=== PATIENT | male | born 2000 | race Caucasian/White ===

== ENCOUNTER 2020-05-27 23:42 | Emergency (ER) | payer OTHER ==
[2020-05-27 23:56] VITALS: BP 143/84; PULSE 93; RESP 18; TEMP 98.9
[2020-05-28] MEDS ORDERED: ACETAMINOPHEN TAB 325 MG TAB PO STA (00:15)
[2020-05-28] MEDS ORDERED: LIDOCAINE 1% INJ 10MG/ML (20 ML MDV) SQ ONE (00:15)
[2020-05-28] MEDS ORDERED: DIPH,PERTUS(ACELL)TETVAC-LF 0.5 ML VIAL IM ONE (00:15)
--- NOTE | 2020-05-28 00:15 | ED ---
Wound/Laceration HPI - General Chief Complaint: Wound/Laceration Stated Complaint: left hand laceration Time Seen by Provider: 05/27/20 23:59 Source: patient, family Mode of arrival: ambulatory Limitations: no limitations - History of Present Illness Initial Comments: 19-year-old male presenting today for chief complaint of left hand laceration. Patient states he was using a pocketknife when he actually slipped cutting his left hand on the palm. Patient doesn't limitations in range of motion of the digit. Patient states is near the center of the hand. Patient states bleeding is controlled. Grandfather who is bedside states that patient's childhood vaccinations are up-to-date. He states he has not had an updated tetanus though within the last 10 years. Patient is no additional complaints he appears well arrival - Related Data Allergies Allergy/AdvReac Type Severity Reaction Status Date / Time No Known Allergies Allergy Verified 05/27/20 23:56 Review of Systems ROS Statement: Those systems with pertinent positive or pertinent negative responses have been documented in the HPI. ROS Other: All systems not noted in ROS Statement are negative. Past Medical History Past Medical History: No Reported History History of Any Multi-Drug Resistant Organisms: None Reported Past Surgical History: No Surgical Hx Reported Past Psychological History: No Psychological Hx Reported Smoking Status: Never smoker Past Alcohol Use History: None Reported Past Drug Use History: None Reported General Exam - General Exam Comments Initial Comments: General: The patient is awake and alert, in no distress, and does not appear acutely ill. Eye: Pupils are equal, round and reactive to light, extra-ocular movements are intact. No nystagmus. There is normal conjunctiva bilaterally. No signs of icterus. Musculoskeletal: Normal ROM, no tenderness. Strength 5/5. Sensation intact. Pulses equal bilaterally 2+. Neurological: A&O x 3. CN II-XII intact grossly, There are no obvious motor or sensory deficits. Coordination appears grossly intact. Speech is normal. Skin: Skin is warm and dry and no rashes or lesions are noted. 1.5cm laceration of the left hand palm distal to thenar eminence mid hand. Psychiatric: Cooperative, appropriate mood & affect, normal judgment. Limitations: no limitations Course Vital Signs 05/27/20 23:54 Temperature 98.9 F Pulse Rate 93 Respiratory 18 Rate Blood Pressure 143/84 O2 Sat by Pulse 97 Oximetry Procedures - Laceration Laceration #1 Consent Obtained: verbal consent Indication: laceration Site: hand Size (cm): 0 (1.5cm) Description: linear Depth: simple, single layer Anesthetic Used: lidocaine 1% Anesthesia Technique: local infiltration Amount (mls): 1 Pre-repair: wound explored, irrigated extensively, deep structures intact Type of Sutures: nylon Size of Sutures: 5-0 Number of Sutures: 4 Technique: simple, interrupted Patient Tolerated Procedure: well, no complications Medical Decision Making - Medical Decision Making 19-year-old male presenting today for chief complaint left hand laceration irrigated cleansed iodine wound edges approximate well with 4 nylon 5.0 sutures. Tdap updated. Patient return parameters discussed iwth patient and grandfather bedside. Patient discharged appearing well. Case discussed with Dr. Caldwell Disposition Clinical Impression: Laceration of left hand Disposition: HOME SELF-CARE Condition: Good Additional Instructions: Please use medication as discussed. Please follow-up with family doctor in the next 2 days, suture removal in 7-10 days. Please return to emergency room if the symptoms increase or worsen or for any other concerns. Is patient prescribed a controlled substance at d/c from ED?: No Referrals: None,Stated [Primary Care Provider] - 1-2 days Time of Disposition: 00:46
== END 2020-05-28 00:57 | disposition home or self-care (01) ==
LOC: EC 23:42
DX: S61.412A Laceration without foreign body of left hand, initial encounter (principal); W26.0XXA Contact with knife, initial encounter; Z23 Encounter for immunization
CPT/HCPCS: 90715; 99282; 90471; 12001; J2001

== ENCOUNTER 2025-01-14 13:17 | Emergency (ER) | payer OTHER ==
--- NOTE | 2025-01-14 13:35 | ED ---
General Adult HPI - General Chief complaint: Extremity Injury, Upper Stated complaint: right hand injury Time Seen by Provider: 01/14/25 13:20 Source: patient, RN notes reviewed, old records reviewed Mode of arrival: ambulatory Limitations: no limitations - History of Present Illness Initial comments: This is a 24-year-old male who presents to the emergency department stating that yesterday he got hit with a basketball in his fourth right ring finger. Patient states after that his PIP joint was swollen and tender. Patient denies any other injury. - Related Data Allergies Allergy/AdvReac Type Severity Reaction Status Date / Time No Known Allergies Allergy Verified 01/14/25 13:20 Review of Systems ROS Statement: Those systems with pertinent positive or pertinent negative responses have been documented in the HPI. ROS Other: All systems not noted in ROS Statement are negative. Past Medical History Past Medical History: No Reported History History of Any Multi-Drug Resistant Organisms: None Reported Past Surgical History: No Surgical Hx Reported Past Psychological History: No Psychological Hx Reported Smoking Status: Never smoker Past Alcohol Use History: None Reported Past Drug Use History: None Reported General Exam - General Exam Comments Initial Comments: GENERAL Patient is well-developed and well-nourished. Patient is in mild distress. EYES Patient's pupils are equal and round. Extraocular motion is intact SKIN Unremarkable NEURO The patient is alert and oriented A&Ox3 PYSCH Patient has normal interpersonal interactions. MUSCULOSKELETAL Patient's PIP joint of the fourth finger on the right hand is swollen and tender to palpation Limitations: no limitations Course Vital Signs 01/14/25 13:18 Temperature 97.4 F L Pulse Rate 119 H Respiratory 17 Rate Blood Pressure 105/76 O2 Sat by Pulse 97 Oximetry Medical Decision Making - Medical Decision Making Was pt. sent in by a medical professional or institution (, PA, CUT PRESSMAN, urgent care, hospital, or care home...) When possible be specific @ -No Did you speak to anyone other than the patient for history (EMS, parent, family, police, friend...)? What history was obtained from this source @ -No Did you review nursing and triage notes (agree or disagree)? Why? @ -I reviewed and agree with nursing and triage notes Were old charts reviewed (outside hosp., previous admission, EMS record, old EKG, old radiological studies, urgent care reports/EKG's, care home records)? Report findings @ -No old charts were reviewed Differential Diagnosis? @ -Differential Musculoskeletal Muscular strain, contusion, ligament sprain, fracture, arthritis, septic arthritis, bursitis, cellulitis, muscle spasm, nerve compression, DVT, arterial occlusion, herpes zoster, electrolyte abnormality, tumor.... This is not meant to be in all inclusive list EKG interpreted by me (3pts min.). @ -As above X-rays interpreted by me (1pt min.). @ -The finger x-ray shows no acute abnormality CT interpreted by me (1pt min.). @ -None done U/S interpreted by me (1pt. min.). @ -None done What testing was considered but not performed or refused? (CT, X-rays, U/S, labs)? Why? @ -None What meds were considered but not given or refused? Why? @ -None Did you discuss the management of the patient with other professionals (professionals i.e. , PA, CUT PRESSMAN, lab, RT, psych nurse, social problems specialist, career technical education teacher, teacher, customs and immigration officer, dependency case manager)? Give summary @ -No Was smoking cessation discussed for >3mins.? @ -No Was critical care preformed (if so, how long)? @ -No Were there social determinants of health that impacted care today? How? (Homelessness, low income, unemployed, alcoholism, drug addiction, transportation, low edu. Level, literacy, decrease access to med. care, [facility], rehab)? @ -No Was there de-escalation of care discussed even if they declined (Discuss DNR or withdrawal of care, Hospice)? DNR status @ -No What co-morbidities impacted this encounter? (DM, HTN, Smoking, COPD, CAD, Cancer, CVA, ARF, Chemo, Hep., AIDS, mental health diagnosis, sleep apnea, morbid obesity)? @ -None Was patient admitted / discharged? Hospital course, mention meds given and route, prescriptions, significant lab abnormalities, going to OR and other pertinent info. @ -Patient had no fracture patient will be placed in a splint. Undiagnosed new problem with uncertain prognosis? @ -No Drug Therapy requiring intensive monitoring for toxicity (Heparin, Nitro, Insulin, Cardizem)? @ -No Were any procedures done? @ -No Diagnosis/symptom? @ -Sprained finger Acute, or Chronic, or Acute on Chronic? @ -Acute Uncomplicated (without systemic symptoms) or Complicated (systemic symptoms)? @ -Uncomplicated Side effects of treatment? @ -No Exacerbation, Progression, or Severe Exacerbation? @ -No Poses a threat to life or bodily function? How? (Chest pain, [place], [place], pneumonia, PE, COPD, DKA, ARF, appy, cholecystitis, CVA, Diverticulitis, Homicidal, Suicidal, threat to staff... and all critical care pts) @ -No Disposition Clinical Impression: Sprain of finger Disposition: HOME SELF-CARE Instructions (If sedation given, give patient instructions): Finger Sprain (ED) Additional Instructions: Patient should wear the splint for 10 days. Patient should take Motrin as needed for pain Is patient prescribed a controlled substance at d/c from ED?: No Referrals: None,Stated [Primary Care Provider] - 1-2 days Time of Disposition: 14:18
--- NOTE | 2025-01-14 13:48 | XR ---
EXAMINATION TYPE: XR finger LT DATE OF EXAM: 01/14/2025 1:42 PM COMPARISON: None. CLINICAL INDICATION: Male, 24 years old with history of Trauma, pain TECHNIQUE: 3 view(s) obtained. FINDINGS: Right ring finger appears intact. No acute fracture or dislocation evident. Joint spaces are preserve d. Soft tissues appear normal. Follow up exams can be performed 7-10 days from acute trauma for continued pain. IMPRESSION: 1. No acute osseous abnormality right ring finger. [facility], , 01/14/2025 1:46 PM
[2025-01-14 14:39] VITALS: BP 111/72; PULSE 84; RESP 20; TEMP 98.6
== END 2025-01-14 14:39 | disposition home or self-care (01) ==
LOC: EC 13:17
DX: S63.614A Unspecified sprain of right ring finger, initial encounter (principal); W21.05XA Struck by basketball, initial encounter
CPT/HCPCS: 99283